=== PATIENT | male | born 1945 | race Caucasian/White ===

== ENCOUNTER 2017-04-07 10:06 | Day surgery (SDC) | payer MEDICARE ==
[~2017-04-07 10:06] MED LIST: Acetaminophen TAB* 325 MG PO PRN; Buffered Lidocaine 0.9% SYRIN* 5 ML/SYR SYRINGE INTRADERM ONE
[2017-04-07] MEDS ORDERED: fentaNYL* 50 MCG/ML 2 ML VIAL (100 MCG VIAL) ONE (11:32)
[2017-04-07] MEDS ORDERED: Midazolam* 1 MG/ML 2 ML VIAL (2 MG) ONE (11:32)
[2017-04-07 12:28] VITALS: BP 132/61
[2017-04-07] MEDS ORDERED: Tetracaine 0.5% OPTH.SOL 4 ML* 1 DROP BTL ONE (14:55)
[2017-04-07] MEDS ORDERED: Lidocaine 1% MPF* 2 ML VIAL ONE (14:55)
[2017-04-07] MEDS ORDERED: Flurbiprofen 0.03% OPTH.SOL* 2.5 ML BTL ONE (14:55)
[2017-04-07] MEDS ORDERED: Phenylephrine 2.5% OPTH.SOL* 2 ML BTL ONE (14:55)
[2017-04-07] MEDS ORDERED: Cyclopentolate 1% OPTH.SOL* 2 ML BTL ONE (14:55)
[2017-04-07] MEDS ORDERED: Neomycin/Polymy/Dex OPHTH.OIN* 3.5 GM ONE (14:55)
[2017-04-07] MEDS ORDERED: Tropicamide 1% OPTH.SOL* BTL ONE (14:55)
[2017-04-07] MEDS ORDERED: Povidone Iodine 5% OPTH* 30 ML BTL ONE (14:55)
[2017-04-07] MEDS ORDERED: acetaZOLAMIDE TAB* 250 MG ONE (14:55)
--- NOTE | 2017-04-08 03:30 | OP ---
AMENDED REPORT TO CORRECT ERRONEOUS DICTATION OF LEFT EYE PER DR. VELAZQUEZ * RIGHT EYE IS CORRECT SURGICAL SIDE DATE OF OPERATION: 04/07/17 - [facility] DATE OF : 41 SURGEON: Enrrique Velazquez MD. ANESTHESIOLOGIST: Kelechi Carlson MD ANESTHESIA: Monitored anesthesia care. PRE-OP DIAGNOSIS: Cataract of the right eye. POST-OP DIAGNOSIS: Cataract of the right eye. OPERATIVE PROCEDURE: Cataract extraction of the right eye. IMPLANTS: SN60WF 14.0 diopter lens to the right eye. COMPLICATIONS: None. DESCRIPTION OF PROCEDURE: The patient was given phenylephrine 2.5% and cyclopentolate 1% eyedrops to the operative eye in the preoperative area. The patient was brought to the operating room, where a time-out was taken to identify the correct patient, site, and side of surgery. The patient's right eye was prepped and draped in the usual sterile fashion with 5% Betadine. A second time-out was taken to verify the correct patient, site and side of surgery, and correct lens selection. A lid speculum was placed to the right eye. A 1-mm paracentesis blade was used to make a clear corneal incision in the inferotemporal position. Preservative-free 1% lidocaine was injected into the anterior chamber. DisCoVisc was injected into the anterior chamber. A 2.75 -mm keratome blade was used to make a triplanar incision at the superotemporal position. A cystotome initiated a capsulorrhexis, which was completed with Utrata forceps in a continuous and curvilinear manner. Hydrodissection of the lens was performed with BSS on a cannula. The lens could be spun in the capsular bag. The phacoemulsification handpiece was used with a divide-and- conquer technique to remove the nucleus in its entirety with 28.13 CDE. The I/ A handpiece then removed the residual cortical lens material. DisCoVisc was reinjected to inflate the capsular bag. The planned SN60WF 14.0 diopter lens was injected into the capsular bag. The residual DisCoVisc was removed from the eye with the I/A handpiece. The corneal incisions were hydrated and no leaks occurred at physiologic pressure around 20 mmHg per palpation. The lid speculum was removed and drapes removed. Maxitrol ointment was placed on the surface of the operative eye. An adhesive patch and shield were placed on the operative eye. The patient was taken to the postoperative area in stable condition. [id number]/[facility] #: [id number] MTDD
== END 2017-04-07 12:28 | disposition home or self-care (01) ==
LOC: OREAST 10:06
PROVIDERS: ATTEND Student in an Organized Health Care Education/Training Program
PROC: 08RK3JZ Replacement of Left Lens with Synthetic Substitute, Percutaneous Approach (ICD-10-PCS; principal; 2017-04-07 11:30)
DX: H25.12 Age-related nuclear cataract, left eye (principal); Z87.891 Personal history of nicotine dependence
CPT/HCPCS: A9270-GY; J2250; J3010; V2632

== ENCOUNTER 2017-04-14 07:15 | Day surgery (SDC) | payer MEDICARE ==
[2017-04-14] MEDS ORDERED: Midazolam* 1 MG/ML 2 ML VIAL (2 MG) ONE (08:33)
[2017-04-14 09:12] VITALS: BP 150/87
[2017-04-14] MEDS ORDERED: Phenylephrine 2.5% OPTH.SOL* 2 ML BTL ONE (14:19)
[2017-04-14] MEDS ORDERED: Neomycin/Polymy/Dex OPHTH.OIN* 3.5 GM ONE (14:19)
[2017-04-14] MEDS ORDERED: acetaZOLAMIDE TAB* 250 MG ONE (14:19)
[2017-04-14] MEDS ORDERED: Tetracaine 0.5% OPTH.SOL 4 ML* 1 DROP BTL ONE (14:19)
[2017-04-14] MEDS ORDERED: Flurbiprofen 0.03% OPTH.SOL* 2.5 ML BTL ONE (14:19)
[2017-04-14] MEDS ORDERED: Povidone Iodine 5% OPTH* 30 ML BTL ONE (14:19)
[2017-04-14] MEDS ORDERED: Lidocaine 1% MPF* 2 ML VIAL ONE (14:19)
[2017-04-14] MEDS ORDERED: Buffered Lidocaine 0.9% SYRIN* 5 ML/SYR SYRINGE ONE (14:19)
[2017-04-14] MEDS ORDERED: Cyclopentolate 1% OPTH.SOL* 2 ML BTL ONE (14:19)
[2017-04-14] MEDS ORDERED: Tropicamide 1% OPTH.SOL* BTL ONE (14:19)
--- NOTE | 2017-04-15 04:02 | OP ---
DATE OF OPERATION: 04/14/17 - [facility] DATE OF : 41 SURGEON: Enrrique Atkins MD ANESTHESIOLOGIST: Anant Posada MD ANESTHESIA: Monitored anesthesia care. PRE-OP DIAGNOSIS: Cataract, left eye. POST-OP DIAGNOSIS: Cataract, left eye. OPERATIVE PROCEDURE: Cataract extraction, left eye. IMPLANTS: SN60WF 14.0 diopter lens to the left eye. COMPLICATIONS: None. DESCRIPTION OF PROCEDURE: The patient was given phenylephrine 2.5% and cyclopentolate 1% eyedrops to the operative eye in the preoperative area. The patient was brought to the operating room, where a time-out was taken to identify the correct patient, site, and side of the surgery. The patient's left eye was prepped and draped in the usual sterile fashion with 5% Betadine. A second time-out was taken to verify the correct patient, site, and side of surgery, and correct lens selection. A lid speculum was placed to the left eye. A 1-mm paracentesis blade was used to make a clear corneal incision in the inferotemporal position. Preservative-free 1% lidocaine was injected into the anterior chamber. DisCoVisc was then injected into the anterior chamber. A 2.75-mm keratome blade was used to make a triplanar incision at the inferotemporal position. A cystotome initiated capsulorrhexis, which was completed with Utrata forceps in a continuous and curvilinear manner. Hydrodissection of the lens was performed with BSS on a cannula. The lens could be spun in the capsular bag. The phacoemulsification handpiece was used with a [id number] technique to remove the nucleus in its entirety with 20.4 CDE. The I/A handpiece then removed the residual cortical lens material. DisCoVisc was injected to inflate the capsular bag. The planned SN60WF 14.0 diopter lens was injected in the capsular bag. The residual DisCoVisc was removed from the eye with the I/A handpiece. The corneal incisions were hydrated and no leaks occurred at physiologic pressure around 20 mmHg per palpation. The lid speculum was then removed and drapes removed. Maxitrol ointment was placed to the surface of the operative eye. An adhesive patch and shield was placed on the operative eye. The patient was taken to the postoperative area in stable condition. [id number]/[facility] #: [id number] [facility] SYSTEMEdson
== END 2017-04-14 09:13 | disposition home or self-care (01) ==
LOC: OREAST 07:15
PROVIDERS: ATTEND Student in an Organized Health Care Education/Training Program
DX: H25.12 Age-related nuclear cataract, left eye (principal); Z98.41 Cataract extraction status, right eye; Z96.1 Presence of intraocular lens; F41.9 Anxiety disorder, unspecified; I10 Essential (primary) hypertension; Z87.891 Personal history of nicotine dependence
CPT/HCPCS: A9270-GY; J2250; V2632

== ENCOUNTER 2018-02-15 14:39 | Emergency (ER) | payer MEDICARE ==
[2018-02-15 15:09] LABS: ABS Basophils 0 10^3/ul (0-0.2); ABS Eosinophils 0.1 10^3/ul (0-0.6); ABS Lymphocytes 1.8 10^3/ul (1.0-4.8); ABS Monocytes 0.7 10^3/ul (0-0.8); ABS Neutrophils 5.3 10^3/ul (1.5-7.7); ABS Nucleated RBC 0 10^3/ul; Eosinophil % 1.4 % (0-6); Hematocrit 43 % (42-52); Hemoglobin 14.5 g/dl (14.0-18.0); Lymphocyte % 22.7 % (25-47); Mean Corpuscular HGB Conc 34 g/dl (31-36); Mean Corpuscular Hemoglobin 31 pg (27-31); Mean Corpuscular Volume 92 fL (80-94); Mean Platelet Volume 7.2 um3 (7.4-10.4); Nucleated Red Blood Cells % 0; Platelet Count 217 10^3/ul (150-450); Red Blood Count 4.67 10^6/ul (4.0-5.4); Red Cell Distribution Width 14 % (10.5-15)
[2018-02-15 15:29] LABS: EGFR Non-African American 63.4 (>60)
--- NOTE | 2018-02-15 16:28 | RAD ---
Indication: Heroin overdose. Evaluate for aspiration. Cardiovascular and respiratory disease. Comparison: No relevant prior exams available on the [facility] PACS for comparison. Technique: Upright AP 1540 hours Report: Elevated lung volumes and mild prominence of the interstitial markings. No alveolar consolidation, pleural effusion, pneumothorax. The heart, pulmonary vasculature, and mediastinal contours are unremarkable. Degenerative arthropathy at the partially visualized shoulders. No fractures evident. IMPRESSION: Stigmata of probable obstructive lung disease. No acute pulmonary or cardiac process evident.
[2018-02-15 17:43] VITALS: BP 00/00
--- NOTE | 2018-02-24 08:59 | ED ---
Jairo Campbell Tiffany, scribed for Fadi Anand MD on 02/15/18 at 1505 . Substance Abuse/Use - HPI Summary HPI Summary: The patient is a 72 year old male BIBA s/p accidental heroin overdose at 14:15 today. Symptoms aggravated by nothing. Symptoms alleviated by nothing. Reports nausea, involuntary urination but is usually incontinent of urine. Denies chest pain, shortness of breath, vomiting. States that he has used 3 times in the last 4 years, but cannot remember when the last time he used. No hx of heart issues. Takes Valium. Per EMS, patient's friend found patient passed out in his car and administered nasal narcan. - History Of Current Complaint Chief Complaint: EDOverdose Stated Complaint: OVERDOSE Time Seen by Provider: 02/15/18 14:54 Hx Obtained From: Patient Onset/Duration of Drug/ETOH Abuse: Minutes Ingestion History: Type/Name Of Drug - Heroin Aggravating Factor(s): Nothing Alleviating Factor(s): Nothing Associated Signs And Symptoms: Negative - chest pain, shortness of breath, vomiting., Other: - involuntary urination but is usually incontinent of urine - Allergies/Home Medications Allergies/Adverse Reactions: Allergies Allergy/AdvReac Type Severity Reaction Status Date / Time No Known Allergies Allergy Verified 02/15/18 14:51 PMH/Surg Hx/FS Hx/Imm Hx Previously Healthy: No Endocrine/Hematology History: Denies: Hx Diabetes Cardiovascular History: Reports: Hx Hypertension - controlled with medication History: Reports: Hx Kidney Stones - last time - approx 5 yrs ago Musculoskeletal History: Reports: Other Musculoskeletal History - hernia, left side, MD monitoring Sensory History: Reports: Hx Cataracts, Hx Contacts or Glasses - wears glasses Denies: Hx Glaucoma, Hx Hearing Aid Opthamlomology History: Reports: Hx Cataracts, Hx Contacts or Glasses - wears glasses Denies: Hx Glaucoma Neurological History: Reports: Hx Migraine - "long time ago" Psychiatric History: Reports: Hx Anxiety - controlled with medication - Surgical History Surgery Procedure, Year, and Place: APPENDEDTOMY Hx Anesthesia Reactions: No Infectious Disease History: No Infectious Disease History: Denies: Traveled Outside the [place] in Last 30 Days - Family History Known Family History: Positive: Hypertension - mother - Social History Alcohol Use: Occasionally Hx Substance Use: Yes Substance Use Type: Reports: Heroin Substance Use Comment - Amount & Last Used: OXYDODONE Hx Tobacco Use: Yes Smoking Status (MU): Former Smoker Type: Cigarettes Amount Used/How Often: 1 PPD Length of Time of Smoking/Using Tobacco: 55 Years Have You Smoked in the Last Year: Yes Review of Systems Positive: Other - Accidental heroin overdose. Negative: Fever, Chills Negative: Erythema Negative: Sore Throat Negative: Chest Pain Negative: Shortness Of Breath, Cough Positive: Nausea. Negative: Abdominal Pain, Vomiting Positive: other - , involuntary urination but is usually incontinent of urine. . Negative: dysuria, hematuria Negative: Myalgia, Edema Negative: Rash Neurological: Negative - Dizziness All Other Systems Reviewed And Are Negative: Yes Physical Exam - Summary Physical Exam Summary: Constitutional: Well-developed, Well-nourished, Alert. (-) Distressed Skin: Warm, Dry HENT: Normocephalic; Atraumatic Eyes: Pupils are 2-mm but reactive Neck: Musculoskeletal ROM normal neck. (-) JVD, (-) Stridor, (-) Tracheal deviation Cardio: Rhythm regular, rate normal, Heart sounds normal; Intact distal pulses; The pedal pulses are 2+ and symmetric. Radial pulses are 2+ and symmetric. (-) Murmur Pulmonary/Chest wall: Effort normal. (-) Respiratory distress, (-) Wheezes, (-) Rales Abd: Soft, (-) Tenderness, (-) Distension, (-) Guarding, (-) Rebound Musculoskeletal: (-) Edema Lymph: (-) Cervical adenopathy Neuro: Alert, Oriented x3 Psych: Mood and affect Normal Triage Information Reviewed: Yes Vital Signs On Initial Exam: Initial Vitals Temp Pulse Resp BP Pulse Ox 97.3 F 82 17 164/85 94 02/15/18 14:48 02/15/18 14:48 02/15/18 14:48 02/15/18 14:48 02/15/18 14:48 Vital Signs Reviewed: Yes Diagnostics - Vital Signs Vital Signs Temp Pulse Resp BP Pulse Ox 02/15/18 14:48 97.3 F 82 17 164/85 94 - Laboratory Lab Results: Lab Results 02/15/18 02/15/18 02/15/18 Range/Units 15:01 15:01 15:01 WBC 8.0 (3.5-10.8) 10^3/ul RBC 4.67 (4.0-5.4) 10^6/ul Hgb 14.5 (14.0-18.0) g/dl Hct 43 (42-52) % MCV 92 (80-94) fL MCH 31 (27-31) pg MCHC 34 (31-36) g/dl RDW 14 (10.5-15) % Plt Count 217 (150-450) 10^3/ul MPV 7.2 L (7.4-10.4) um3 Neut % (Auto) 66.2 (38-83) % Lymph % (Auto) 22.7 L (25-47) % Emmet % (Auto) 9.2 H (0-7) % Eos % (Auto) 1.4 (0-6) % Baso % (Auto) 0.5 (0-2) % Absolute Neuts (auto) 5.3 (1.5-7.7) 10^3/ul Absolute Lymphs (auto) 1.8 (1.0-4.8) 10^3/ul Absolute Monos (auto) 0.7 (0-0.8) 10^3/ul Absolute Eos (auto) 0.1 (0-0.6) 10^3/ul Absolute Basos (auto) 0 (0-0.2) 10^3/ul Absolute Nucleated RBC 0 10^3/ul Nucleated RBC % 0 Sodium 139 (139-145) mmol/L Potassium 3.4 L (3.5-5.0) mmol/L Chloride 104 (101-111) mmol/L Carbon Dioxide 27 (22-32) mmol/L Anion Gap 8 (2-11) mmol/L BUN 23 (6-24) mg/dL Creatinine 1.13 (0.67-1.17) mg/dL Est GFR ( Amer) 81.6 (>60) Est GFR (Non-Af Amer) 63.4 (>60) BUN/Creatinine Ratio 20.4 H (8-20) Glucose 137 H (70-100) mg/dL Lactic Acid 1.1 (0.5-2.0) mmol/L Calcium 9.7 (8.6-10.3) mg/dL Total Bilirubin 1.20 H (0.2-1.0) mg/dL AST 23 (13-39) U/L ALT 28 (7-52) U/L Alkaline Phosphatase 51 (34-104) U/L Troponin I 0.00 (<0.04) ng/mL Total Protein 6.9 (6.4-8.9) g/dL Albumin 3.9 (3.2-5.2) g/dL Globulin 3.0 (2-4) g/dL Albumin/Globulin Ratio 1.3 (1-3) Result Diagrams: 02/15/18 15:01 02/15/18 15:01 Lab Statement: Any lab studies that have been ordered have been reviewed, and results considered in the medical decision making process. - Radiology CXR Radiology Interpretation Completed By: Radiologist - Stigmata of probable obstructive lung disease. No acute pulmonary or cardiac process evident. ED Physician has reviewed this report. - EKG 15:05 Cardiac Rate: NL - 75 BPM EKG Rhythm: Sinus Rhythm EKG Interpretation: Atrial premature complexes. Non STEMI. Course/Dx - Course Course Of Treatment: 72 y/o presents to ED due to heroin overdose. Due to advanced age, LOC, cardiac demand from heroin overdose, and apnea the decision to admit for observation was made to rule out HI and aspiration. Pt wishes to leave AMA. He understands the risks of disability and . Pt is given information for [employer] [facility] AIDS programs, despite his disapproval. - Diagnoses Provider Diagnoses: Heroin overdose Discharge - Sign-Out/Discharge Documenting (check all that apply): Discharge/Admit/Transfer - AMA - Discharge Plan Condition: Good Disposition: ADMITTED TO [facility] Referrals: Lisa Rosado MD [Primary Care Provider] - - Billing Disposition and Condition Condition: GOOD Disposition: [facility] The documentation as recorded by the Jairo diaz Tiffany accurately reflects the service I personally performed and the decisions made by , Fadi Anand MD.
== END 2018-02-15 17:42 | disposition left against medical advice (07) ==
LOC: ED 14:39
DX: T65.91XA Toxic effect of unspecified substance, accidental (unintentional), initial encounter (principal); Y92.9 Unspecified place or not applicable; Z53.21 Procedure and treatment not carried out due to patient leaving prior to being seen by health care provider
CPT/HCPCS: 36415; 71045; 80053; 83605; 84484; 85025; 93005; 99282

== ENCOUNTER 2023-10-08 16:01 | Inpatient (IN) ==
[2023-10-08] MEDS: NS 0.9% 1000 ml BAG 1,000 ML IV ONE ×2 (17:56→20:10)
[2023-10-08 18:23] LABS: ABS Eosinophils 0.1 10^3/uL (0.0-0.5); ABS Lymphocytes 1.8 10^3/uL (1.0-4.8); ABS Monocytes 0.6 10^3/uL (0.0-1.1); ABS Neutrophils 4.9 10^3/uL (1.5-7.6); ABS Nucleated RBC 0.01 10^3/ul; Eosinophil % 1.3 %; Hematocrit 42.6 % (38-53); Hemoglobin 14.2 g/dL (13.2-16.3); Mean Corpuscular Hemoglobin 30.6 pg (27-33); Mean Corpuscular Hgb Conc 33.5 g/dL (31-36); Mean Corpuscular Volume 91.3 fL (80-97); Mean Platelet Volume 8.1 fL (7.5-11.2); Nucleated Red Blood Cells % 0.1 %/100WBC (0.0-0.8); Platelet Count 275 10^3/uL (150-450); Red Blood Count 4.66 10^6/uL (4.06-5.63); Red Cell Distribution Width 14.1 % (12-17); White Blood Count 7.5 10^3/uL (3.6-10.2)
[2023-10-08 18:44] LABS: Albumin 3.8 g/dL (3.2-5.2); Albumin/Globulin Ratio 1.2 (1-3); Calcium 9.6 mg/dL (8.6-10.3); Creatinine, Serum 0.91 mg/dL (0.67-1.17); Globulin 3.3 g/dL (2-4); Magnesium 1.9 mg/dL (1.9-2.7); Potassium 3.6 mmol/L (3.5-5.0); Total Bilirubin 0.6 mg/dL (0.2-1.0); Total Protein 7.1 g/dL (6.4-8.9); eGFR CKD-EPI 85.2 (>60)
[2023-10-08 18:48] LABS: Alcohol, S < 13 mg/dL (<13)
[2023-10-08 18:52] LABS: Urine Appearance Cloudy; Urine Bilirubin Negative (Negative); Urine Blood 1+ (Negative); Urine Color Yellow; Urine Glucose Negative (Negative); Urine Ketones Trace (Negative); Urine Nitrite Negative (Negative); Urine Protein 1+(30 mg/dL) (Negative); Urine Specific Gravity 1.015 (1.002-1.030); Urine Urobilinogen Negative (Negative)
[2023-10-08 19:02] LABS: TSH Ultra Thyroid Stim Horm 0.52 mcIU/mL (0.34-5.60)
[2023-10-08 19:06] LABS: Urine Bacteria 1+ (Absent); Urine Red Blood Cell 2+(6-10/hpf) (Absent); Urine Squamous Epithelial Cell Present (Absent); Urine White Blood Cell 3+(>20/hpf) (Absent)
[2023-10-08] MEDS ORDERED: cefTRIAXone 1 gm/50 mL D5W 1 GM/50 ML BAG IV ONE (19:36)
[2023-10-09 00:47] LABS: Folate 12.24 ng/mL (5.90-24.80)
[2023-10-09 00:48] LABS: Vitamin B12 241 pg/mL (180-914)
[2023-10-09] MEDS: Heparin 5000 UNITS/ML 1 mL VIAL SUBCUT SCH ×3 (06:20→21:08)
[2023-10-09 07:05] LABS: ABS Eosinophils 0.1 10^3/uL (0.0-0.5); ABS Lymphocytes 1.6 10^3/uL (1.0-4.8); ABS Monocytes 0.6 10^3/uL (0.0-1.1); ABS Neutrophils 5.8 10^3/uL (1.5-7.6); Eosinophil % 1.4 %; Hematocrit 41.8 % (38-53); Hemoglobin 14.1 g/dL (13.2-16.3); Lymphocyte % 19.6 %; Mean Corpuscular Hemoglobin 30.5 pg (27-33); Mean Corpuscular Hgb Conc 33.6 g/dL (31-36); Mean Corpuscular Volume 90.6 fL (80-97); Platelet Count 268 10^3/uL (150-450); Red Blood Count 4.62 10^6/uL (4.06-5.63); Red Cell Distribution Width 14.2 % (12-17); White Blood Count 8.1 10^3/uL (3.6-10.2)
[2023-10-09 07:24] LABS: Calcium 8.9 mg/dL (8.6-10.3); Creatinine, Serum 0.88 mg/dL (0.67-1.17); Potassium 3.4 mmol/L (3.5-5.0); eGFR CKD-EPI 86.9 (>60)
[2023-10-09] MEDS ORDERED: Potassium Chlor 20 meq TAB.ER PO ONE (08:27)
[2023-10-09] MEDS: Carbidopa/Levodop 25/100 MG TAB PO SCH ×3 (14:38→17:41)
[2023-10-09] MEDS: cefTRIAXone 1 gm/50 mL D5W 1 GM/50 ML BAG IV SCH (21:08)
[2023-10-10] MEDS: Heparin 5000 UNITS/ML 1 mL VIAL SUBCUT SCH ×3 (06:13→23:51)
[2023-10-10] MEDS: Carbidopa/Levodop 25/100 MG TAB PO SCH ×3 (08:32→17:31)
[2023-10-10] MEDS: cefTRIAXone 1 gm/50 mL D5W 1 GM/50 ML BAG IV SCH (20:18)
[2023-10-11] MEDS: Heparin 5000 UNITS/ML 1 mL VIAL SUBCUT SCH ×3 (06:30→21:34)
[2023-10-11] MEDS: Carbidopa/Levodop 25/100 MG TAB PO SCH ×3 (08:36→17:26)
[2023-10-12] MEDS: Enoxaparin 40 MG/0.4 ML SYR SUBCUT SCH (07:52)
[2023-10-12] MEDS: Carbidopa/Levodop 25/100 MG TAB PO SCH ×3 (07:58→18:29)
[2023-10-12 11:11] LABS: ABS Eosinophils 0.1 10^3/uL (0.0-0.5); ABS Lymphocytes 1.4 10^3/uL (1.0-4.8); ABS Monocytes 0.6 10^3/uL (0.0-1.1); ABS Neutrophils 5.9 10^3/uL (1.5-7.6); Eosinophil % 1.1 %; Hematocrit 40.8 % (38-53); Hemoglobin 13.6 g/dL (13.2-16.3); Lymphocyte % 17.3 %; Mean Corpuscular Hemoglobin 30.4 pg (27-33); Mean Corpuscular Hgb Conc 33.3 g/dL (31-36); Mean Corpuscular Volume 91.2 fL (80-97); Mean Platelet Volume 8.2 fL (7.5-11.2); Nucleated Red Blood Cells % 0.1 %/100WBC (0.0-0.8); Platelet Count 248 10^3/uL (150-450); Red Blood Count 4.47 10^6/uL (4.06-5.63); Red Cell Distribution Width 14.2 % (12-17)
[2023-10-12 11:27] LABS: Calcium 9.1 mg/dL (8.6-10.3); Creatinine, Serum 0.94 mg/dL (0.67-1.17); Magnesium 1.9 mg/dL (1.9-2.7); Potassium 3.7 mmol/L (3.5-5.0); eGFR CKD-EPI 81.9 (>60)
[2023-10-13] MEDS: Enoxaparin 40 MG/0.4 ML SYR SUBCUT SCH (09:40)
[2023-10-13] MEDS: Carbidopa/Levodop 25/100 MG TAB PO SCH ×3 (09:49→17:36)
[2023-10-13] MEDS ORDERED: Senna TAB 8.6 mg TAB PO PRN (10:46)
[2023-10-14] MEDS: Acetaminophen IV 1 GM/100ML 1,000 MG/100 ML BAG IV SCH ×3 (00:07→10:45)
[2023-10-14] MEDS ORDERED: hydrALAZINE 20 mg/ml 1 ML Vial IV IV SLOW PU PRN ×2 (02:49→03:05)
[2023-10-14 06:40] VITALS: BP 176/80
[2023-10-14] MEDS: Carbidopa/Levodop 25/100 MG TAB PO SCH (09:55)
[2023-10-14] MEDS: Enoxaparin 40 MG/0.4 ML SYR SUBCUT SCH (10:19)
[2023-10-14 10:51] LABS: Rapid COVID-19 Molecular Undetected (Undetected)
== END 2023-10-14 13:45 | DRG 690 ==
LOC: EDHOLD 16:01 → ED 16:01 → SUATTDRO 23:24 → MED 10-09 10:34 → EDHOLD 10-09 10:56 → MED 10-09 11:07
PROVIDERS: ADMIT Internal Medicine; ATTEND Internal Medicine